=== PATIENT | female | born 1960 | race African-American/Black ===

== ENCOUNTER 2019-04-02 16:11 | Emergency (ER) | payer BC ==
[~2019-04-02] VITALS: Ht 165.1 cm; Wt 90.0 kg
[2019-04-02] MEDS ORDERED: KETOROLAC 60MG/2ML VIAL IM ONE (22:30)
[2019-04-02] MEDS ORDERED: AMLODIPINE 2.5MG TABLET PO ONE (22:30)
[2019-04-02 23:51] VITALS: BP 165/84
== END 2019-04-02 23:53 | disposition home or self-care (01) ==
LOC: ER 16:11
DX: I16.0 Hypertensive urgency (principal); M25.512 Pain in left shoulder; I10 Essential (primary) hypertension
CPT/HCPCS: 73030; 93005; 96372; 99283; J1885